=== PATIENT | male | born 1980 | race American Indian/Alaskan Native ===

== ENCOUNTER 2017-04-27 04:47 | Emergency (ER) | payer MEDICARE, MEDICAID ==
[2017-04-27 04:55] VITALS: BMI 21.6
[2017-04-27 04:58] VITALS: RESP 17; O2SAT 98
--- NOTE | 2017-04-27 05:02 | ED PDOC ---
Arrival/HPI - General Chief Complaint: Alcohol Ingestion Time Seen by Provider: 04/27/17 04:56 Historian: EMS - History of Present Illness Narrative History of Present Illness (Text): 04/27/17 04:58 A 36 year old male with no significant past medical history is brought into the emergency department via EMS for alcohol intoxication. As per EMS, the patient was seen sleeping on a bench by the [place] [employer] they called EMS for the patient to be evaluated. The patient denies denies fevers, chills, headache , dizziness, chest pain, shortness of breath, dyspnea on exertion, cough, abdominal pain, nausea, vomiting, diarrhea, back pain, neck pain, urinary/bowel changes, or any other complaint. Time/Duration: Prior to Arrival Symptom Onset: Sudden Symptom Course: Unchanged Activities at Onset: Rest Context: Street Past Medical History - Provider Review Nursing Documentation Reviewed: Yes - Infectious Disease Hx of Infectious Diseases: None - Psychiatric Hx Substance Use: No - Anesthesia Hx Anesthesia: No Family/Social History - Physician Review Nursing Documentation Reviewed: Yes Family/Social History: Other (Non- contributory.) Smoking Status: Unknown If Ever Smoked Hx Alcohol Use: Yes Hx Substance Use: No Allergies/Home Meds Allergies/Adverse Reactions: Allergies No Known Allergies Allergy (Verified 04/27/17 04:56) Home Medications: Home Meds Medication Instructions Recorded Confirmed No Known Home Med 04/27/17 04/27/17 Review of Systems - Review of Systems Constitutional: absent: Fevers Respiratory: absent: SOB Cardiovascular: absent: Chest Pain Gastrointestinal: absent: Abdominal Pain, Diarrhea, Nausea, Vomiting Neurological: absent: Headache Physical Exam Vital Signs Reviewed: Yes Vital Signs Temp Pulse Resp BP Pulse Ox 04/27/17 06:48 98.0 F 80 17 115/72 98 04/27/17 04:58 97.8 F 78 17 98 Appearance: Positive for: Well-Appearing Pain Distress: None Mental Status: Positive for: Alert and Oriented X 3 - Systems Exam Extroacular Muscles: Present: EOMI Mouth: Present: Moist Mucous Membranes Respiratory/Chest: Present: Clear to Auscultation, Good Air Exchange, Accessory Muscle Use Cardiovascular: Present: Regular Rate and Rhythm Abdomen: No: Tenderness, Distention Upper Extremity: Present: NORMAL PULSES Lower Extremity: Present: NORMAL PULSES Neurological: Present: GCS=15, Motor Func Grossly Intact, Normal Sensory Function, Gait Normal Skin: Present: Warm, Dry Psychiatric: Present: Alert, Oriented x 3 Medical Decision Making ED Course and Treatment: 640am pt a&ox3, ambulating with steady gait, clinically sober. - Scribe Statement The provider has reviewed the documentation as recorded by the Scribe Maria Luisa Braon Provider Scribe Attestation: All medical record entries made by the Scribe were at my direction and personally dictated by me. I have reviewed the chart and agree that the record accurately reflects my personal performance of the history, physical exam, medical decision making, and the department course for this patient. I have also personally directed, reviewed, and agree with the discharge instructions and disposition. Disposition/Present on Arrival - Present on Arrival Any Indicators Present on Arrival: No History of DVT/PE: No History of Uncontrolled Diabetes: No Urinary Catheter: No History of Decub. Ulcer: No History Surgical Site Infection Following: None - Disposition Have Diagnosis and Disposition been Completed?: Yes Diagnosis: Homeless Disposition: HOME/ ROUTINE Disposition Time: 07:30 Condition: STABLE [place] [facility] [place] [facility] [place] - Follow up with primary Forms: [employer] of [employer] (Serbian)
[2017-04-27 06:50] VITALS: BP 115/72; PULSE 80; TEMP 98
== END 2017-04-27 07:30 | disposition home or self-care (01) ==
LOC: ED 04:47
DX: Z59.0 Homelessness (principal)